=== PATIENT | female | born 1990 ===

== ENCOUNTER → 2023-03-06 08:30 | Outpatient (BNV) | payer OTHER, SELFPAY | PROVIDERS: Visit Provider Psychiatry & Neurology Psychiatry | DX: F31.30 Bipolar disorder, current episode depressed, mild or moderate severity, unspecified (principal); F43.11 Post-traumatic stress disorder, acute; F10.90 Alcohol use, unspecified, uncomplicated | CPT/HCPCS: 99233 ==

== ENCOUNTER 2023-03-20 08:45 | Outpatient (RCR) | payer OTHER, SELFPAY ==
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
--- NOTE | 2023-03-06 08:18 | HO.PHP ---
The clients case was reviewed and opened in treatment team
--- NOTE | 2023-03-09 09:34 | HO.PHP ---
I called Jemma when she did not come in for the morning meeting. She called back and states that she has the stomach flu and will be in tomorrow.
[2023-03-10 12:19] VITALS: BP 100/62; PULSE 54; TEMP 37
[2023-03-10 12:23] VITALS: BMI 36.1
--- NOTE | 2023-03-18 08:03 | PC.NURSE ---
Jemma called [facility] staff [place] 03/17/23 stating she was sick and doctor is doing a Covid Test and will let us know. I called Jemma and left her a message to call me back. Awaiting call.
--- NOTE | 2023-03-18 09:01 | PC.NURSE ---
I spoke to Jemma via telephone and she stated she is not feeling well again today. She reports fever 100.3, congestion, H/A, nausea, dizziness, and sore throat. No rash. She reports others in her family are also sick with the same symptoms. She stated when she had Covid in the past she had the same symptoms. She is follwoing up with her doctor. She tested negative for Covid yesterday. She stated her doctor told her to test herself again today. Eliza Fraser APRN notified of aforementioned information.
--- NOTE | 2023-03-19 09:29 | PC.NURSE ---
Jemma did not show up to the program this morning. I left her a message to call me back. Awaiting phone call.
--- NOTE | 2023-03-19 09:40 | PC.NURSE ---
Jemma continues to feel sick. She reports H/A, dizziness, sore throat, chest and nasal congestion. She reports other members of her family are sick with the same symptoms. She stated she is doing ok mental health elena. Eliza Fraser APRN is aware of aforementioned information. Jemma can continue with Lamictal. Patient plans to reach out to her PCP to refill the medication. [facility] staff is aware.
--- NOTE | 2023-03-19 14:59 | HO.PHP ---
I called and left Jemma a message stating that I wanted to see how she was feeling and to sdiscuss when she can return. I asked her to return my call.
--- NOTE | 2023-03-23 09:38 | PC.NURSE ---
Jemma did not show up to the program this morning. I called her and left her a message to call me back.
--- NOTE | 2023-03-23 09:43 | PC.NURSE ---
Jemma did not come to the program this morning. I spoke to her and she stated she continues to be sick. Has a cough, sore throat, H/A on and off with some dizziness. She stated her son and mother are sick with similar symptoms. She will be discharged from the program d/t attendance issues. She will call the program when feeling better to restart. Denied SI or safety concerns. [facility] staff aware including Dr Jung. She will f/u with medications with her PCP.
== END 2023-03-20 23:59 | disposition home or self-care (01) ==
LOC: HO.PHPA 08:45
PROVIDERS: Visit Provider Psychiatry & Neurology Psychiatry
DX: F31.30 Bipolar disorder, current episode depressed, mild or moderate severity, unspecified (principal); F43.10 Post-traumatic stress disorder, unspecified; F10.90 Alcohol use, unspecified, uncomplicated
CPT/HCPCS: 90791; 90853